=== PATIENT | female | born 1990 | race Caucasian/White ===

== ENCOUNTER 2017-11-12 17:57 | Outpatient (CLI) | payer BC ==
[2017-11-12 18:54] LABS: BILIRUBIN,URINE NEGATIVE (NEGATIVE); BLOOD, URINE NEGATIVE (NEGATIVE); CLARITY/URINE CLEAR (CLEAR); COLOR,URINE YELLOW (YELLOW); GLUCOSE,URINE NEGATIVE (NEGATIVE); KETONES,URINE NEGATIVE (NEGATIVE); LEUKOCYTE ESTERASE ,URINE NEGATIVE (NEGATIVE); NITRITE, URINE NEGATIVE (NEGATIVE); PROTEIN URINE NEGATIVE (NEGATIVE); UROBILINOGEN,URINE 0.2 (0.2-1.0)
[2017-11-12 19:03] LABS: CALCIUM 8.8 mg/dL (8.4-11.0); CREATININE 0.38 mg/dL (0.55-1.30); POTASSIUM 3.6 mmol/L (3.5-5.1); TOTAL BILIRUBIN 0.6 mg/dL (0.0-1.0)
[2017-11-12 19:11] LABS: BASOPHILS % (AUTO) 0.2 % (0.0-2.0); EOSINOPHILS # (AUTO) 0.3 K/uL (0.0-0.4); HEMATOCRIT 37.8 % (36-48); HEMOGLOBIN 12.7 g/dL (12.0-16.0); LYMPHOCYTES # (AUTO) 2.1 K/uL (1.0-5.5); LYMPHOCYTES % (AUTO) 16.8 % (20.5-51.5); MEAN CORPUSCULAR HEMOGLOBIN 32 pg (27-31); MEAN CORPUSCULAR HGB CONC 34 % (32-36); MEAN CORPUSCULAR VOLUME 95 fL (79.0-98.0); MONOCYTES # (AUTO) 0.8 K/uL (0.0-1.0); MONOCYTES % (AUTO) 6.4 % (1.7-9.3); NEUTROPHILS # (AUTO) 9.6 K/uL (1.8-7.7); NEUTROPHILS % (AUTO) 74.6 % (40.0-70.0); RED BLOOD CELL COUNT(AUTO) 3.96 MIL/uL (4.2-6.2); RED CELL DISTRIBUTION WIDTH 13.5 % (9.0-15.0); WHITE BLOOD COUNT (AUTO) 12.8 K/uL (4.8-10.8)
[2017-11-12 19:39] LABS: PLATELET COUNT (AUTO) 95 K/uL (130-430)
[2017-11-16 08:14] LABS: HEPATITIS A AB, IgM Negative (Negative); HEPATITIS B CORE AB, IgM Negative (Negative); HEPATITIS B SURFACE AG Negative (Negative)
[2017-11-16 10:28] LABS: THYROID PEROXIDASE (TPO) AB 18 IU/mL (0-34)
[2017-11-16 11:30] LABS: ANTI-DNA(DS) AB, QN <1 IU/mL (0-9); ANTI-NUCLEAR AB DIRECT Negative (Negative); SMITH ABS <0.2 AI (0.0-0.9)
== END 2017-11-12 20:36 | disposition home or self-care (01) ==
LOC: SLB 17:57
PROVIDERS: ATTEND Obstetrics & Gynecology
DX: D69.6 Thrombocytopenia, unspecified (principal); R79.89 Other specified abnormal findings of blood chemistry
CPT/HCPCS: 36415; 80053; 80074; 81003; 82043; 82570; 83010; 83615-TC; 85025

== ENCOUNTER 2017-11-15 16:42 | Observation (INO) | payer BC ==
[~2017-11-15] VITALS: Ht 3 cm; Wt 77.1 kg
[2017-11-15 20:52] LABS: BASOPHILS % (AUTO) 0.4 % (0.0-2.0); EOSINOPHILS # (AUTO) 0.2 K/uL (0.0-0.4); HEMATOCRIT 36.6 % (36-48); LYMPHOCYTES # (AUTO) 2.1 K/uL (1.0-5.5); LYMPHOCYTES % (AUTO) 19.7 % (20.5-51.5); MEAN CORPUSCULAR HEMOGLOBIN 33 pg (27-31); MEAN CORPUSCULAR HGB CONC 36 % (32-36); MEAN CORPUSCULAR VOLUME 94 fL (79.0-98.0); MONOCYTES # (AUTO) 0.5 K/uL (0.0-1.0); MONOCYTES % (AUTO) 4.9 % (1.7-9.3); NEUTROPHILS # (AUTO) 7.8 K/uL (1.8-7.7); PLATELET COUNT (AUTO) 92 K/uL (130-430); WHITE BLOOD COUNT (AUTO) 10.6 K/uL (4.8-10.8)
[2017-11-15 21:17] LABS: CALCIUM 8.5 mg/dL (8.4-11.0); CREATININE 0.46 mg/dL (0.55-1.30); POTASSIUM 3.3 mmol/L (3.5-5.1)
[2017-11-15 21:31] LABS: ALBUMIN 2.6 g/dL (3.4-4.8); TOTAL BILIRUBIN 0.4 mg/dL (0.0-1.0)
[2017-11-16 06:44] LABS: INR 1.1 (0.8-1.2); PROTHROMBIN TIME 10.7 SECS (9.5-12.5)
[2017-11-16 06:54] LABS: ALBUMIN 2.4 g/dL (3.4-4.8); CALCIUM 8.2 mg/dL (8.4-11.0); CREATININE 0.48 mg/dL (0.55-1.30); POTASSIUM 3.6 mmol/L (3.5-5.1); TOTAL BILIRUBIN 0.5 mg/dL (0.0-1.0)
[2017-11-16 08:52] LABS: HEMATOCRIT 36.5 % (36-48); HEMOGLOBIN 12.3 g/dL (12.0-16.0); MEAN CORPUSCULAR HEMOGLOBIN 32 pg (27-31); MEAN CORPUSCULAR HGB CONC 34 % (32-36); MEAN CORPUSCULAR VOLUME 95 fL (79.0-98.0); PLATELET COUNT (AUTO) 95 K/uL (130-430); RED BLOOD CELL COUNT(AUTO) 3.85 MIL/uL (4.2-6.2); RED CELL DISTRIBUTION WIDTH 13.5 % (9.0-15.0); WHITE BLOOD COUNT (AUTO) 10.1 K/uL (4.8-10.8)
[2017-11-16 10:13] LABS: BAND % (MANUAL) 1 % (0-6); LYMPHOCYTES % (MANUAL) 26 % (20-46)
[2017-11-16 10:14] LABS: BASOPHILS % (MANUAL) 0 % (0-2); EOSINOPHILS % (MANUAL) 3 % (0-7); MONOCYTES % (MANUAL) 5 % (0-11)
[2017-11-17 06:08] LABS: HEPATITIS A AB, IgM Negative (Negative); HEPATITIS B CORE AB, IgM Negative (Negative); HEPATITIS B SURFACE AG Negative (Negative)
[2017-11-17 18:11] LABS: ANTI NUCLEAR AB WITH REFLEX Negative (Negative)
[2017-11-18 13:11] LABS: ANTI-SMOOTH MUSCLE AB 17 Units (0-19)
== END 2017-11-16 18:50 | disposition home or self-care (01) ==
LOC: SPU 16:42
PROVIDERS: ADMIT Obstetrics & Gynecology; ATTEND Obstetrics & Gynecology
DX: O99.112 Other diseases of the blood and blood-forming organs and certain disorders involving the immune mechanism complicating pregnancy, second trimester (principal); Z3A.23 23 weeks gestation of pregnancy
CPT/HCPCS: 36415 ×2; 76700 ×2; 80053 ×2; 80074; 81002; 83010; 83516; 83615; 85007; 85025; 85027; 85044; 85379; 85384; 85610; 86038; G0378 ×2